=== PATIENT | female | born 1980 | race Caucasian/White ===

== ENCOUNTER 2021-05-27 18:30 | Emergency (ER) | payer OTHER ==
[~2021-05-27] VITALS: Ht 165.1 cm; Wt 63.5 kg
[2021-05-27] MEDS ORDERED: TRAMADOR (18:54)
== END 2021-05-27 19:39 | disposition home or self-care (01) ==
LOC: ER 18:30
DX: M54.5 Low back pain (principal)

== ENCOUNTER → 2024-06-24 | Emergency (ER) | payer OTHER ==
[~2024-06-24] VITALS: Ht 160 cm; Wt 65.8 kg
[~2024-06-24] MED LIST: TRAMADOR
== END | disposition left against medical advice (07) ==
LOC: ER 21:10
DX: Z53.21 Procedure and treatment not carried out due to patient leaving prior to being seen by health care provider (principal)